=== PATIENT | male | born 1955 | race Caucasian/White ===

== ENCOUNTER 2017-01-17 06:54 | Day surgery (SDC) | payer BC ==
[~2017-01-17] VITALS: Ht 185.4 cm; Wt 84.2 kg
[2017-01-17 08:26] VITALS: Ht 185.4 cm; Wt 84.2 kg
[2017-01-17 08:40] VITALS: BP 131/76; PULSE 55; RESP 12
[2017-01-17] MEDS ORDERED: MIDAZOLAM 1 MG/ML 2 ML INJ ONE ×3 (09:20→09:21)
[2017-01-17] MEDS ORDERED: FENTAnyl 50 MCG/ML VIAL ONE (09:20)
[2017-01-17 09:43] VITALS: BP 119/77; RESP 18
--- NOTE | 2017-01-18 07:57 | GILP ---
DATE OF PROCEDURE: NAME OF PROCEDURES: Colonoscopy and biopsy. SURGEON: Brijesh Martel MD PREOPERATIVE DIAGNOSIS: Screening colonoscopy. POSTOPERATIVE DIAGNOSES 1. Colonoscopy all the way to the cecum. 2. Small polyp from the cecum was removed using the biopsy forceps. 3. Internal hemorrhoids. INDICATION FOR THE PROCEDURE: Mr. Sawyer Rubi is a 61-year-old male patient who was scheduled for s creening colonoscopy. The procedure and possible complications were well explained to the patient. The patient understood and consented to the procedure. DESCRIPTION OF PROCEDURE: Under the influence of fentanyl and Versed, the colonoscope was carefully introduced in the rectum and under direct vision it was advanced all the way to the cecum. FINDINGS: The patient had a small polyp in the cecum and it was removed using the biopsy forceps. The patient was noted to have internal hemorrhoids. He tolerated the procedure very well and there was no complication from the procedure. At the end o f the procedure, he was awake with stable vital signs and he was discharged home to the care of his family. IMPRESSION: 1. Colonoscopy all the way to the cecum. 2. Small cecal polyp was removed using the biopsy forceps. 3. Internal hemorrhoids. PLAN: Next screening colonoscopy in 10 years. Dictated By: BRIJESH ESTEVES/ELSIE Conf#: [id number] DID#: [id number]
== END 2017-01-17 10:46 | disposition home or self-care (01) ==
LOC: GIL 06:54
PROVIDERS: ATTEND Internal Medicine Gastroenterology
DX: Z12.11 Encounter for screening for malignant neoplasm of colon (principal); D12.0 Benign neoplasm of cecum; K64.8 Other hemorrhoids
CPT/HCPCS: 45380; 88305; J2250; J3010; Z7610